=== PATIENT | female | born 1970 | race Two or more races ===

== ENCOUNTER 2021-03-22 14:43 | Day surgery (SDC) | payer OTHER ==
[2021-03-19 10:47] LABS: Basophils # (auto) 0.1 10 ^3/uL (0-0.2); Basophils % (auto) 1.1 % (0.0-2.0); Eosinophils # (auto) 0.5 10 ^3/uL (0-0.8); Eosinophils % (auto) 4.9 % (0.0-7.0); Hematocrit 41.1 % (36.0-46.0); Hemoglobin 14.3 g/dL (12.2-16.2); Lymphocytes # (auto) 3.4 10 ^3/uL (0.4-5.4); Lymphocytes % (auto) 37.7 % (10.0-50.0); Mean Corpuscular Hemoglobin 30.1 pg (28.0-32.0); Mean Corpuscular Hgb Conc. 34.7 g/dL (32.0-36.0); Mean Corpuscular Volume 86.8 fL (80.0-100.0); Monocytes # (auto) 0.4 10 ^3/uL (0-1.3); Monocytes % (auto) 4.9 % (0.0-12.0); Neutrophils # (auto) 4.7 10 ^3/uL (1.6-8.6); Neutrophils % (auto) 51.4 % (37.0-80.0); Red Blood Cells 4.74 10^6/uL (4.0-5.20); Red Cell Distribution Width 14.1 % (11.8-14.3); White Blood Cell 9.1 10^3/uL (4.4-10.8)
[2021-03-19 11:14] LABS: Urine Bacteria FEW /hpf (None Seen); Urine Blood Negative /uL (Negative); Urine Specific Gravity 1.016 (1.001-1.035); Urine WBC 4 /hpf (0 - 5)
[2021-03-19 11:20] LABS: Albumin 3.5 g/dL (3.4-5.0); Calcium 9.2 mg/dL (8.5-10.1); Potassium 3.4 mmol/L (3.5-5.1)
[2021-03-19 11:23] LABS: BUN/Creatinine Ratio 24.2; Bilirubin, Total 0.7 mg/dL (0.2-1.0); Total Protein 7.2 g/dL (6.4-8.2)
[~2021-03-22] VITALS: Ht 165.1 cm; Wt 91.6 kg
[~2021-03-22 14:43] MED LIST: AMLO-483 PO; LOSA-39 PO
[2021-03-22] MEDS ORDERED: SODIUM CHLORIDE LOCK 10 ML ONE (15:55)
[2021-03-22] MEDS ORDERED: diphenhdrAMINE HCL 50 MG/1 ML VL ONE (15:55)
[2021-03-22] MEDS: MIDAZOLAM HCL 5 MG/ML-1ML VIAL ONE ×3 (16:27→16:35)
[2021-03-22] MEDS: fentaNYL CITRATE 100 MCG/2 ML VL ONE ×2 (16:27→16:30)
[2021-03-22 17:15] VITALS: BP 111/76
== END 2021-03-22 17:30 | disposition home or self-care (01) ==
LOC: GI 14:43
PROVIDERS: ATTEND Internal Medicine Gastroenterology
DX: Z12.11 Encounter for screening for malignant neoplasm of colon (principal); K63.89 Other specified diseases of intestine; K64.8 Other hemorrhoids; I10 Essential (primary) hypertension; Z90.710 Acquired absence of both cervix and uterus; Z98.890 Other specified postprocedural states; Z79.899 Other long term (current) drug therapy; Z20.822 Contact with and (suspected) exposure to COVID-19
CPT/HCPCS: 36415; 45380; 80053; 81001; 85025; J1200; J2250; J3010; J7030; U0003; 99152